=== PATIENT | female | born 1990 | race African-American/Black ===

== ENCOUNTER 2017-02-15 20:17 | Emergency (ER) | payer MEDICAID, OTHER ==
[~2017-02-15] VITALS: Ht 167.6 cm; Wt 69.0 kg
[~2017-02-15 20:17] MED LIST: PREN-55 PO; PREN-88 PO
[2017-02-15] MEDS ORDERED: SODIUM CHLORIDE 0.9% 1,000 ML IV ONE (22:25)
[2017-02-15] MEDS ORDERED: METOCLOPRAMIDE HCL 10MG/2ML VIAL IV STA (22:25)
[2017-02-15 22:42] LABS: CLARITY URINE CLEAR (CLEAR); COLOR URINE DARK YELLOW (YELLOW); GLUCOSE URINE NEGATIVE (NEGATIVE); KETONES URINE 3+ (NEGATIVE); LEUKOCYTE ESTERASE URINE NEGATIVE (NEGATIVE); NITRITE URINE NEGATIVE (NEGATIVE); OCCULT BLOOD URINE NEGATIVE (NEGATIVE); PROTEIN URINE 1+ (NEGATIVE); SPECIFIC GRAVITY URINE 1.037 (1.005-1.030)
[2017-02-15 23:01] LABS: BASOPHILS % 0.8 % (0.0-2.0); EOSINOPHILS % 0.3 % (0.0-5.0); HEMATOCRIT. 35.7 % (36.0-48.0); HEMOGLOBIN. 12.4 g/dL (12.0-16.0); LYMPHOCYTES % 28.3 % (20.0-50.0); MEAN CORPUSCULAR HEMOGLOBIN 33.4 pg (28.0-32.0); MEAN CORPUSCULAR VOLUME 96.3 fL (81.0-99.0); MEAN PLATELET VOLUME 7.3 fl (7.4-10.4); MONOCYTES % 7.6 % (2.0-8.0); PLATELET 339 x1000/uL (130-400); RED CELL DISTRIBUTION WIDTH 12.6 % (11.6-14.6)
[2017-02-15 23:15] LABS: CARBON DIOXIDE 24 mEq/L (21-32); CHLORIDE 103 mEq/L (98-107)
[2017-02-16 01:30] VITALS: BP 110/61
== END 2017-02-16 01:45 | disposition home or self-care (01) ==
LOC: ER 21:14
DX: O21.0 Mild hyperemesis gravidarum (principal); O99.331 Smoking (tobacco) complicating pregnancy, first trimester; O26.891 Other specified pregnancy related conditions, first trimester; J45.909 Unspecified asthma, uncomplicated; Z3A.09 9 weeks gestation of pregnancy; Z88.0 Allergy status to penicillin
CPT/HCPCS: 36415; 76801; 80053; 81001; 81025; 83690; 85025; 96361; 96374; 99284; J2765; J7030; Z7610

== ENCOUNTER 2017-05-05 11:18 | Emergency (ER) | payer OTHER ==
[~2017-05-05] VITALS: Ht 162.6 cm; Wt 60.0 kg
[2017-05-05] MEDS ORDERED: ACETAMINOPHEN 500MG TABLET PO ONE (13:45)
[2017-05-05] MEDS ORDERED: SODIUM CHLORIDE 0.9% 1,000 ML IV ONE ×2 (13:45→17:15)
[2017-05-05 14:11] LABS: CLARITY URINE CLEAR (CLEAR); COLOR URINE YELLOW (YELLOW); GLUCOSE URINE NEGATIVE (NEGATIVE); KETONES URINE 4+ (NEGATIVE); LEUKOCYTE ESTERASE URINE NEGATIVE (NEGATIVE); NITRITE URINE NEGATIVE (NEGATIVE); OCCULT BLOOD URINE NEGATIVE (NEGATIVE); PROTEIN URINE TRACE (NEGATIVE); SPECIFIC GRAVITY URINE 1.032 (1.005-1.030)
[2017-05-05 14:29] LABS: BASOPHILS % 0.4 % (0.0-2.0); HEMOGLOBIN. 10.2 g/dL (12.0-16.0); LYMPHOCYTES % 15.3 % (20.0-50.0); MEAN CORPUSCULAR HEMOGLOBIN 33.3 pg (28.0-32.0); MEAN CORPUSCULAR VOLUME 98.3 fL (81.0-99.0); MONOCYTES % 7.1 % (2.0-8.0); NEUTROPHILS % 77.2 % (40.0-76.0); PLATELET 266 x1000/uL (130-400); RED BLOOD CELL COUNT 3.05 mill/uL (4.2-5.4); RED CELL DISTRIBUTION WIDTH 12.8 % (11.6-14.6)
[2017-05-05 14:42] LABS: CARBON DIOXIDE 25 mEq/L (21-32); CHLORIDE 104 mEq/L (98-107)
[2017-05-05 14:58] LABS: B-HCG QUANTITATIVE 17671 mIU/mL (<3)
[2017-05-05 19:14] VITALS: BP 118/74
== END 2017-05-05 19:19 | disposition left against medical advice (07) ==
LOC: ER 11:18 → EDBEDREQ 17:19 → CANRESERV 18:59 → ENRESERV 18:59 → CANBEDREQ 19:16 → ER 19:19
DX: O26.892 Other specified pregnancy related conditions, second trimester (principal); B34.9 Viral infection, unspecified; E86.0 Dehydration; J45.909 Unspecified asthma, uncomplicated; Z88.0 Allergy status to penicillin; Z3A.20 20 weeks gestation of pregnancy
CPT/HCPCS: 36415; 76805; 80048; 81001; 81025; 84702; 85025; 86850; 86900; 86901; 87040; 87086; 87804; 96360; 96361; 99285; J7030; Z7610

== ENCOUNTER 2017-05-06 00:56 | Emergency (ER) | payer OTHER ==
[~2017-05-06] VITALS: Ht 167.6 cm; Wt 71.0 kg
[2017-05-06 01:02] VITALS: BP 118/69
[2017-05-06] MEDS ORDERED: SODIUM CHLORIDE 0.9% 1,000 ML IV ONE (01:41)
[2017-05-06] MEDS ORDERED: ACETAMINOPHEN 325MG TABLET PO ONE (01:45)
== END 2017-05-06 03:30 | disposition home or self-care (01) ==
LOC: EDSTATUS 00:56 → ER 01:58
DX: R51 Headache (principal); R10.9 Unspecified abdominal pain; R50.9 Fever, unspecified; Z88.0 Allergy status to penicillin
CPT/HCPCS: 99282; Z7610; J7030

== ENCOUNTER 2017-08-19 11:39 | Observation (INO) | payer OTHER ==
[~2017-08-19] VITALS: Ht 167.6 cm; Wt 72.6 kg
== END 2017-08-19 15:20 | disposition home or self-care (01) ==
LOC: L&D 11:39
PROVIDERS: ADMIT Obstetrics & Gynecology; ATTEND Obstetrics & Gynecology
DX: O36.8130 Decreased fetal movements, third trimester, not applicable or unspecified (principal); Z3A.36 36 weeks gestation of pregnancy
CPT/HCPCS: 76805; 76818; 99281; G0378

== ENCOUNTER 2017-08-19 19:57 | Observation (INO) | payer OTHER ==
[~2017-08-19] VITALS: Ht 167.6 cm; Wt 72.6 kg
[2017-08-19] MEDS: LACTATED RINGERS 1,000 ML IV SCH ×2 (21:00→22:49)
[2017-08-19] MEDS ORDERED: ACETAMINOPHEN 500MG TABLET PO NR (21:45)
[2017-08-20] MEDS: LACTATED RINGERS 1,000 ML IV SCH (05:45)
== END 2017-08-20 10:05 | disposition home or self-care (01) ==
LOC: L&D 19:57
PROVIDERS: ADMIT Obstetrics & Gynecology; ATTEND Obstetrics & Gynecology
DX: O36.8130 Decreased fetal movements, third trimester, not applicable or unspecified (principal); Z3A.00 Weeks of gestation of pregnancy not specified
CPT/HCPCS: 76815; 76818; 96360; 96361; G0378; J7120; 99281

== ENCOUNTER 2017-08-24 14:40 | Observation (INO) | payer OTHER ==
[~2017-08-24] VITALS: Ht 165.1 cm; Wt 72.6 kg
[~2017-08-24 14:40] MED LIST changes: -PREN-88 PO
== END 2017-08-24 16:57 | disposition home or self-care (01) ==
LOC: L&D 14:40
PROVIDERS: ADMIT Specialist; ATTEND Specialist
DX: O26.893 Other specified pregnancy related conditions, third trimester (principal); R10.9 Unspecified abdominal pain; O42.92 Full-term premature rupture of membranes, unspecified as to length of time between rupture and onset of labor; Z3A.37 37 weeks gestation of pregnancy
CPT/HCPCS: 99281; G0378

== ENCOUNTER 2017-08-28 13:01 | Observation (INO) | payer OTHER | END 2017-08-28 15:10 | disposition home or self-care (01) | LOC: L&D 13:01 | PROVIDERS: ADMIT Specialist; ATTEND Specialist | DX: O62.9 Abnormality of forces of labor, unspecified (principal); O21.2 Late vomiting of pregnancy; R10.9 Unspecified abdominal pain; Z3A.37 37 weeks gestation of pregnancy | CPT/HCPCS: 99281; G0378 ==

== ENCOUNTER 2018-08-12 19:42 | Emergency (ER) | payer OTHER ==
[~2018-08-12] VITALS: Ht 165.1 cm; Wt 59.0 kg
[2018-08-12 23:50] VITALS: BP 124/75
== END 2018-08-12 23:51 | disposition home or self-care (01) ==
LOC: ER 19:42
DX: B86 Scabies (principal); L29.9 Pruritus, unspecified; Z88.0 Allergy status to penicillin; Z79.899 Other long term (current) drug therapy
CPT/HCPCS: 99282; 99283

== ENCOUNTER 2019-04-11 19:07 | Emergency (ER) | payer MEDICAID, OTHER ==
[~2019-04-11] VITALS: Ht 165.1 cm; Wt 59.0 kg
[2019-04-11] MEDS ORDERED: SODIUM CHLORIDE 0.9% 1,000 ML IV ONE (21:12)
[2019-04-11] MEDS ORDERED: ONDANSETRON HCL 4MG/2ML INJ IV ONE (21:15)
[2019-04-11 23:06] LABS: BASOPHILS % 0.5 % (0.0-2.0); EOSINOPHILS % 0.7 % (0.0-5.0); HEMATOCRIT. 31.3 % (36.0-48.0); LYMPHOCYTES % 32.6 % (20.0-50.0); MEAN CORPUSCULAR HEMOGLOBIN 34.8 pg (28.0-32.0); MEAN CORPUSCULAR VOLUME 98.9 fL (81.0-99.0); MEAN PLATELET VOLUME 7.7 fl (7.4-10.4); MONOCYTES % 7.1 % (2.0-8.0); NEUTROPHILS % 59.1 % (40.0-76.0); PLATELET 322 x1000/uL (130-400); RED BLOOD CELL COUNT 3.17 mill/uL (4.2-5.4); RED CELL DISTRIBUTION WIDTH 12.7 % (11.6-14.6)
[2019-04-11 23:12] LABS: CHLORIDE 108 mEq/L (98-107)
[2019-04-11 23:36] LABS: B-HCG QUANTITATIVE 61115 mIU/mL (<3)
[2019-04-12 03:00] VITALS: BP 127/59
== END 2019-04-12 03:00 | disposition home or self-care (01) ==
LOC: ER 19:07
DX: O26.892 Other specified pregnancy related conditions, second trimester (principal); O99.512 Diseases of the respiratory system complicating pregnancy, second trimester; Z3A.19 19 weeks gestation of pregnancy; J45.909 Unspecified asthma, uncomplicated; R42 Dizziness and giddiness; Z88.0 Allergy status to penicillin; Z87.891 Personal history of nicotine dependence
CPT/HCPCS: 36415; 76830; 76856; 80053; 84702; 85025; 96360; 99284; J7030

== ENCOUNTER 2019-09-10 01:18 | Observation (INO) | payer OTHER ==
[~2019-09-10] VITALS: Ht 166.4 cm; Wt 81.6 kg
[2019-09-10] MEDS ORDERED: DEXT 5%/LACTATED RINGERS 1,000 ML IV SCH (04:00)
[2019-09-10 04:05] LABS: CLARITY URINE CLEAR (CLEAR); COLOR URINE YELLOW (YELLOW); KETONES URINE NEGATIVE (NEGATIVE); LEUKOCYTE ESTERASE URINE TRACE (NEGATIVE); NITRITE URINE NEGATIVE (NEGATIVE); OCCULT BLOOD URINE NEGATIVE (NEGATIVE); PH URINE 6.5 (4.5-8.0); PROTEIN URINE NEGATIVE (NEGATIVE); SPECIFIC GRAVITY URINE 1.002 (1.005-1.030); UROBILINOGEN URINE 0.2 E.U./dL (0.2-1.0)
[2019-09-10] MEDS ORDERED: TERBUTALINE SULFATE 1MG/ML VIAL SUBCUT PRN (05:15)
[2019-10-25] MEDS ORDERED: IBUP-2028 PO (06:56)
[2019-10-25] MEDS ORDERED: FERR325T6 MT (06:56)
== END 2019-09-10 06:15 | disposition home or self-care (01) ==
LOC: 8 EST LDRP 01:18
PROVIDERS: ADMIT Obstetrics & Gynecology; ATTEND Obstetrics & Gynecology
DX: O26.893 Other specified pregnancy related conditions, third trimester (principal); O42.913 Preterm premature rupture of membranes, unspecified as to length of time between rupture and onset of labor, third trimester; R10.30 Lower abdominal pain, unspecified; Z3A.35 35 weeks gestation of pregnancy
CPT/HCPCS: 76805; 76818; 81003; 96372; 99281; G0378; J3105; 96360

== ENCOUNTER 2019-10-02 21:30 | Observation (INO) | payer OTHER ==
[~2019-10-02] VITALS: Ht 166.4 cm; Wt 81.6 kg
== END 2019-10-02 23:53 | disposition home or self-care (01) ==
LOC: 8 EST LDRP 21:30
PROVIDERS: ADMIT Obstetrics & Gynecology; ATTEND Obstetrics & Gynecology
DX: Z34.83 Encounter for supervision of other normal pregnancy, third trimester (principal); Z3A.38 38 weeks gestation of pregnancy
CPT/HCPCS: 76815; 76818; 99281; G0378

== ENCOUNTER 2019-10-09 19:08 | Observation (INO) | payer OTHER ==
[2019-10-25] MEDS ORDERED: FERR325T6 MT (06:56)
[2019-10-25] MEDS ORDERED: IBUP-2028 PO (06:56)
== END 2019-10-09 21:20 | disposition home or self-care (01) ==
LOC: 8 EST LDRP 19:08
PROVIDERS: ADMIT Obstetrics & Gynecology; ATTEND Obstetrics & Gynecology
DX: O62.9 Abnormality of forces of labor, unspecified (principal); O26.893 Other specified pregnancy related conditions, third trimester; R10.9 Unspecified abdominal pain; Z3A.39 39 weeks gestation of pregnancy
CPT/HCPCS: 99281; G0378